=== PATIENT | female | born 1980 | race Two or more races ===

== ENCOUNTER 2016-10-25 11:51 | Outpatient (CLI) | payer OTHER ==
[~2016-10-25] VITALS: Ht 165.1 cm; Wt 83.9 kg
[~2016-10-25 11:51] MED LIST: BCAA PO; BIOT1CAP2 PO; CLA1000C PO; CRAN125T PO; FIBEPOW PO; FISH1000 PO; HAIR1TAB5 PO; LACT3000 PO; MULT1TAB10 PO; NEXI40CA PO; PROAAER10 INH; PROBCAP4 PO
[2016-10-25] MEDS ORDERED: NS 1,000 ML IV ONE (12:00)
[2016-10-25] MEDS ORDERED: GLYCOPYRROLATE INJ 0.2 MG/ML 2 ML VIAL As Ordered ONE (12:43)
[2016-10-25] MEDS ORDERED: PROPOFOL 200 MG/20 ML VIAL As Ordered ONE (12:43)
[2016-10-25] MEDS ORDERED: LIDOCAINE 2% INJ 100 MG/5 ML SDV (FOR ANES.) As Ordered ONE (12:43)
--- NOTE | 2016-10-25 12:55 | ROOR ---
Patient Name: Nory Dangelo Procedure Date: 10/25/2016 12:37 PM Date of : 1980 Age: 36 Room: [facility] Gender: Female Note Status: Finalized Procedure: Total Colonoscopy to Cecum + ileoscopy + Bx Indications: Change in bowel habits Providers: Alan Gutierrez MD Referring MD: GORDY KAMINSKI MD Requesting Provider: Medicines: Monitored Anesthesia Care Complications: No immediate complications. Procedure: Pre-Anesthesia Assessment: - The heart rate, respiratory rate, oxygen saturations, blood pressure, adequacy of pulmonary ventilation, and response to care were monitored throughout the procedure. The Colonoscope was introduced through the anus and advanced to the terminal ileum, with identification of the appendiceal orifice and IC valve. The colonoscopy was performed without difficulty. The patient tolerated the procedure well. The quality of the bowel preparation was excellent. Findings: The perianal and digital rectal examinations were normal. Non-bleeding internal hemorrhoids were found during retroflexion. The hemorrhoids were small. No other significant abnormalities were identified in a careful examination of the remainder of the colon. The terminal ileum appeared normal. Biopsies for histology were taken with a cold forceps from the ascending colon and transverse colon for evaluation of microscopic colitis. The exam was otherwise without abnormality. Impression: - Non-bleeding internal hemorrhoids. - The examined portion of the ileum was normal. - The examination was otherwise normal. - Biopsies were taken with a cold forceps from the ascending colon and transverse colon for evaluation of microscopic colitis. - The exam was otherwise normal to the cecum. Recommendation: - Patient has a contact number available for emergencies. The signs and symptoms of potential delayed complications were discussed with the patient. Return to normal activities tomorrow. Written discharge instructions were provided to the patient. - High fiber diet. - Discharge patient to home. - Continue present medications. - Await pathology results. - Telephone GI clinic for pathology results in 1 week. - Repeat colonoscopy at age 51 for screening purposes. - Return to referring physician. - The findings and recommendations were discussed with the patient's family. Alan Gutierrez MD Alan Gutierrez MD 10/25/2016 12:55:10 PM This report has been signed electronically. Number of Addenda: 0 Note Initiated On: 10/25/2016 12:37 PM Estimated Blood Loss: Estimated blood loss: none.
[2016-10-25 13:10] VITALS: BP 119/72
== END 2016-10-25 13:13 | disposition home or self-care (01) ==
LOC: M OPP 11:51
PROVIDERS: ATTEND Internal Medicine Gastroenterology
DX: R19.4 Change in bowel habit (principal); K64.8 Other hemorrhoids; K58.9 Irritable bowel syndrome, unspecified; K59.00 Constipation, unspecified; R12 Heartburn; K62.5 Hemorrhage of anus and rectum; D64.9 Anemia, unspecified; K21.9 Gastro-esophageal reflux disease without esophagitis; F41.9 Anxiety disorder, unspecified; G43.909 Migraine, unspecified, not intractable, without status migrainosus; J45.909 Unspecified asthma, uncomplicated; R06.83 Snoring; Z91.040 Latex allergy status; Z79.899 Other long term (current) drug therapy; Z80.3 Family history of malignant neoplasm of breast

== ENCOUNTER → 2017-05-23 | Outpatient (REF) | payer OTHER ==
[2017-05-23 13:38] LABS: BACTERIA, URINE LARGE AMOUNT; RBC, URINE 0-1 /hpf (0-3); SQUAMOUS EPITHELIAL CELL URINE LARGE AMOUNT /hpf (SMALL AMT)
[2017-05-23 13:39] LABS: AMORPHOUS SEDIMENT, URINE SMALL AMOUNT (NEGATIVE); MICROSCOPIC EXAM PERFORMED; MUCUS, URINE SMALL AMOUNT (NEGATIVE)
== END ==
LOC: M SMT 13:12
DX: R32 Unspecified urinary incontinence (principal)
CPT/HCPCS: 81015

== ENCOUNTER → 2017-07-02 | Outpatient (CLI) | payer OTHER | LOC: M RAD 10:34 | DX: J32.9 Chronic sinusitis, unspecified (principal) ==